=== PATIENT | male | born 1965 | race Caucasian/White ===

== ENCOUNTER 2020-07-08 23:14 | Inpatient (IN) | payer OTHER ==
[~2020-07-08] VITALS: Ht 182.9 cm; Wt 79.5 kg
[~2020-07-08 23:14] MED LIST: AMBIEN10 MG PO; IBUPROFEN200 MG PO; OXYCODONE HCL5 MG PO; XANAX1 MG PO; ZANTAC150 MG PO
[2020-07-08] MEDS ORDERED: LOPRESSOR25 MG PO (23:20)
[2020-07-08] MEDS ORDERED: VALIUM10 MG PO (23:21)
--- NOTE | 2020-07-08 23:22 | NUR ---
TRAUMA BAND [id number]
[2020-07-09 00:04] LABS: ANION GAP 13.7 mmol/L (8-16); CALCIUM 8.5 mg/dL (8.5-10.1); CARBON DIOXIDE 25.4 mmol/L (21.0-32.0); CREATININE - SERUM 1.2 mg/dL (0.6-1.3); POTASSIUM - SERUM 4.1 mmol/L (3.5-5.1)
[2020-07-09 00:06] LABS: HEMATOCRIT 46.5 % (42.0-54.0); HEMOGLOBIN 16.1 g/dL (13.5-17.5); LYMPHOCYTES 14.1 % (15-50); MCHC 34.6 g/dL (31.0-37.0); MCV 89.4 fL (80.0-100.0); MEAN PLATELET VOLUME 9.3 fL (7.4-10.4); NEUTROPHILS 79.3 % (40-80); PLATELET COUNT 172 10x3/uL (130-400); RDW 12.6 % (11.5-14.5); WBC 9.6 10x3/uL (4.8-10.8)
[2020-07-09 00:09] LABS: ALBUMIN 3.8 g/dL (3.4-5.0); BILIRUBIN - TOTAL 0.54 mg/dL (0.2-1.3); PROTEIN - SERUM 7.5 g/dL (6.4-8.2)
--- NOTE | 2020-07-09 00:10 | NUR ---
PT TO CT AT THIS TIME.
[2020-07-09 02:38] LABS: APTT 26.3 SECONDS (22.8-39.4); INR 1.25 (0.85-1.17); PROTIME 14.6 SECONDS (11.6-15.0)
[2020-07-09 02:52] LABS: AMYLASE - SERUM 86 U/L (25-115); CKMB 37.8 U/L (0.0-3.6); CREATINE KINASE 744 UL (21-232); LIPASE 625 U/L (73-393)
[2020-07-09 02:54] LABS: TROPONIN-I < 0.017 ng/mL (0.000-0.060)
--- NOTE | 2020-07-09 03:30 | NUR ---
RECEIVED PT FROM ER VIA BED. PT A&O X4. PIV TO LEFT FOREARM, PATENT AND INFUSING, NO REDNESS OR SWELLING. FX TO GABE, SIMBA WRAP IN PLACE. TELE IN PLACE, 96 SR. BRUISES TO BACK. PT BEDFAST AND TOTAL CARE. EDUCATED ON CL AND NEEDS, VERBALIZED UNDERSTANDING. BED LOW, CL IN REACH.
[2020-07-09 04:00] VITALS: BP 139/73
[2020-07-09 05:16] VITALS: BP 139/73; BMI 23.8
--- NOTE | 2020-07-09 05:58 | NUR ---
PERFORMED HIPPA CLEANSE, PT TOLERATED WELL. BED LOW, CL IN REACH.
[2020-07-09 08:48] VITALS: BP 115/76
[2020-07-09 10:01] LABS: BASOPHILS 0.2 % (0-2); EOSINOPHILS 1.4 % (0-7); HEMATOCRIT 43.8 % (42.0-54.0); HEMOGLOBIN 15.3 g/dL (13.5-17.5); IMMATURE GRANULOCYTES 0.3 % (0-5); LYMPHOCYTES 17.4 % (15-50); MCH 31.5 pg (26.0-34.0); MCHC 34.9 g/dL (31.0-37.0); MCV 90.3 fL (80.0-100.0); MEAN PLATELET VOLUME 9.3 fL (7.4-10.4); MONOCYTES 6.7 % (2-11); NEUTROPHIL ABS# 6.81 10x3/uL (1.78-5.38); PLATELET COUNT 169 10x3/uL (130-400); RBC 4.85 10x6/uL (4.20-6.10); RDW 12.9 % (11.5-14.5); WBC 9.2 10x3/uL (4.8-10.8)
[2020-07-09 12:46] VITALS: BP 115/81
[2020-07-09 13:06] VITALS: Ht 182.9 cm; Wt 79.5 kg
[2020-07-09 17:11] VITALS: BP 116/82
[2020-07-09 20:23] VITALS: BP 111/63
[2020-07-10] VITALS (7 sets, daily range): BP systolic 103–138; BP diastolic 70–90
[2020-07-10 03:16] LABS: UDS - AMPHET POSITIVE QUAL (NEGATIVE); UDS - BARB NEGATIVE QUAL (NEGATIVE); UDS - BENZO POSITIVE QUAL (NEGATIVE); UDS - COCAINE NEGATIVE QUAL (NEGATIVE); UDS - OPIATE POSITIVE QUAL (NEGATIVE); UDS - PCP NEGATIVE QUAL (NEGATIVE); UDS - THC NEGATIVE QUAL (NEGATIVE)
[2020-07-10 03:50] LABS: BILIRUBIN NEGATIVE (NEGATIVE); KETONE NEGATIVE (NEGATIVE); NITRITE NEGATIVE (NEGATIVE); UROBILINOGEN NORMAL mg/dL (< 2)
[2020-07-10 03:52] LABS: BACTERIA NONE SEEN HPF (NONE SEEN); SQUAMOUS EPITHELIAL 0-5 HPF (0-4); WHITE CELLS - URINE 0-5 HPF (0-1)
--- NOTE | 2020-07-10 05:13 | NUR ---
I have reviewed this patient and I concur with the Shift Assessment completed by the Licensed Practical Nurse today this shift.
[2020-07-10 05:44] LABS: BASOPHILS 0.2 % (0-2); EOSINOPHILS 2.8 % (0-7); HEMATOCRIT 44.9 % (42.0-54.0); HEMOGLOBIN 15.3 g/dL (13.5-17.5); IMMATURE GRANULOCYTES 0.4 % (0-5); LYMPHOCYTE ABS# 1.62 10x3/uL (1.32-3.57); LYMPHOCYTES 19.1 % (15-50); MCH 30.9 pg (26.0-34.0); MCHC 34.1 g/dL (31.0-37.0); MCV 90.7 fL (80.0-100.0); MEAN PLATELET VOLUME 10.1 fL (7.4-10.4); MONOCYTES 7.8 % (2-11); NEUTROPHILS 69.7 % (40-80); PLATELET COUNT 157 10x3/uL (130-400); RBC 4.95 10x6/uL (4.20-6.10); RDW 13.1 % (11.5-14.5); WBC 8.5 10x3/uL (4.8-10.8)
[2020-07-10 05:56] LABS: ALKALINE PHOSPHATASE 66 U/L (30-120); ALT (SGPT) 26 U/L (10-68); BILIRUBIN - TOTAL 0.54 mg/dL (0.2-1.3); CALC OSMOLALITY 273 mosm/kg (275-300); CARBON DIOXIDE 26.9 mmol/L (21.0-32.0); CHLORIDE - SERUM 104 mmol/L (98-107); GLUCOSE 108 mg/dL (74-106); MAGNESIUM - SERUM 2.3 mg/dL (1.8-2.4); POTASSIUM - SERUM 3.6 mmol/L (3.5-5.1); PROTEIN - SERUM 6.4 g/dL (6.4-8.2); SODIUM 137 mmol/L (136-145); eGFR NON AFRICAN AMERICAN 83 mL/min (90-120)
[2020-07-10 06:02] LABS: UREA NITROGEN 10 mg/dL (7-18)
--- NOTE | 2020-07-10 11:17 | NUR ---
PATIENT PREMEDICATED AND PATIENT STABLE PRIOR TO LEAVING FOR PROCEDURE. RIGHT ARM ELEVATED WITH ICE PACK APPLIED. PAIN 3/10 POST MORPHINE GIVEN IVP.
--- NOTE | 2020-07-11 00:14 | NUR ---
I have reviewed this patient and I concur with the Shift Assessment completed by the Licensed Practical Nurse today this shift.
[2020-07-11 01:19] VITALS: BP 112/74
[2020-07-11 04:00] VITALS: BP 114/75
[2020-07-11 06:39] LABS: BASOPHILS 0.1 % (0-2); EOSINOPHILS 0.6 % (0-7); HEMATOCRIT 43.1 % (42.0-54.0); HEMOGLOBIN 14.9 g/dL (13.5-17.5); IMMATURE GRANULOCYTES 0.2 % (0-5); LYMPHOCYTE ABS# 1.33 10x3/uL (1.32-3.57); LYMPHOCYTES 12.5 % (15-50); MCH 30.9 pg (26.0-34.0); MCHC 34.6 g/dL (31.0-37.0); MCV 89.4 fL (80.0-100.0); MEAN PLATELET VOLUME 10.1 fL (7.4-10.4); MONOCYTES 8.2 % (2-11); NEUTROPHIL ABS# 8.32 10x3/uL (1.78-5.38); NEUTROPHILS 78.4 % (40-80); PLATELET COUNT 158 10x3/uL (130-400); RBC 4.82 10x6/uL (4.20-6.10); RDW 12.7 % (11.5-14.5); WBC 10.6 10x3/uL (4.8-10.8)
[2020-07-11 07:11] LABS: ALBUMIN 2.8 g/dL (3.4-5.0); ALKALINE PHOSPHATASE 72 U/L (30-120); BILIRUBIN - TOTAL 0.34 mg/dL (0.2-1.3); CALC OSMOLALITY 276 mosm/kg (275-300); CALCIUM 8.1 mg/dL (8.5-10.1); CARBON DIOXIDE 24.8 mmol/L (21.0-32.0); CHLORIDE - SERUM 104 mmol/L (98-107); CREATININE - SERUM 0.9 mg/dL (0.6-1.3); GLUCOSE 144 mg/dL (74-106); MAGNESIUM - SERUM 2.3 mg/dL (1.8-2.4); POTASSIUM - SERUM 3.8 mmol/L (3.5-5.1); PROTEIN - SERUM 6.6 g/dL (6.4-8.2); SODIUM 138 mmol/L (136-145); UREA NITROGEN 8 mg/dL (7-18); eGFR NON AFRICAN AMERICAN > 90 mL/min (90-120)
[2020-07-11 07:22] LABS: ALT (SGPT) 38 U/L (10-68)
[2020-07-11 08:16] VITALS: BP 118/74
[2020-07-11] MEDS ORDERED: PERCOCET 5-3251 TAB PO (09:06)
[2020-07-11] MEDS ORDERED: VISTARIL50 MG PO (09:06)
[2020-07-11 12:01] VITALS: BP 120/82
[2020-07-11 16:33] VITALS: BP 91/44
--- NOTE | 2020-07-11 20:13 | OP ---
PATIENT NAME: REID CASTANO MEDICAL RECORD: [id number] :69 LOCATION:[id number] ADMISSION DATE:07/09/20 SURGEON: TALAT LYNN DO DATE OF OPERATION: 07/10/2020 PROCEDURE PERFORMED: Right distal radius open reduction internal fixation and DRUJ stabilization pinning. PREOPERATIVE DIAGNOSES: Right intra-articular distal radius fracture and DRUJ disruption. POSTOPERATIVE DIAGNOSES: Right intra-articular distal radius fracture and DRUJ disruption. INDICATIONS: Mr. Castano is a 54-year-old male who fell off a roof and sustained a right distal radius fracture. We were not aware of the DRUJ until he got to the OR. I informed him of the risks and benefits of this procedure including infection, bleeding, damage to nerves or vessels, need for further surgery, continued pain, loss of motion of the wrist, need for removal of hardware, failure of implants, failure of hardware, malunion, nonunion, blood clots and even and he signed a consent. SURGEON: Talat Lynn DO DESCRIPTION OF PROCEDURE: The patient was taken to the operative suite, laid in supine position, given general anesthetic. After given a block by anesthesia in the preoperative area, he was given 2 grams of Ancef and LMA was placed. The right upper extremity was then prepped and draped in sterile fashion. A timeout was performed. Everyone was in agreeance with the correct site, side, patient and procedure. I then exsanguinated the right upper extremity with an Esmarch, tourniquet was inflated to 250 mmHg, it was up for 28 minutes. I then made careful dissection down through the flexor carpi radialis interval and made careful dissection down to the pronator quadratus tendon, peeled it off radially, got a reduction of the distal radius intra-articular fracture and put a K-wire through the distal radial styloid. I then placed an Acumed plate on the distal radius. Once this was in adequate position, I placed a screw in the oblong hole in the shaft and then placed four screws distally, one in the radial styloid and then 2 more locking screws in the shaft through the plate. At that point, I noted that the ulna was a very wide. The DRUJ was severely widened. I then reduced it manually and put 0.062 K-wire across from the ulna to the radius holding it into place, bent and cut the pin. The tourniquet was then let down. Any bleeding was coagulated with a pickup and a Bovie and bipolar. It was then irrigated and Ilia Herrera, certified surgical hair assistant closed the site with 3-0 Vicryl in inverted interrupted fashion and placed a Prineo glue on the site. He was then dressed with Adaptic, 4 x 4s, cast padding, and a volar splint and secured with an Cesario wrap. He was awakened and taken to recovery in stable condition. BLOOD LOSS: Minimal. COMPLICATIONS: None. TRANSINT:[id number] Voice Confirmation ID: [id number] DOCUMENT ID: [id number] OPERATIVE REPORT [id number] REID CASTANO,TALAT Harley DO at 2013 CC: [id number] DICTATION DATE: 07/10/20 1443 BSS SOLUTION ARCHITECT: 07/10/[address] [facility] [address] [place] [address]
[2020-07-11 20:21] VITALS: BP 133/96
--- NOTE | 2020-07-11 22:00 | NUR ---
IV TO LEFT AC INFILTRATED. DCd, CATH INTACT. 20G IV RESITE TO LEFT FOREARM, 1ST ATTMPT. PATENT. SWAB CAPS IN USE. PT REQUESTS BED ALARM AND ADELA BE TURNED OFF. INFORMED PT OF FALL RISKS, PT SIGNED WAIVER AND REPORTS HE WILL USE CALL BUTTON BEFORE ATTEMPTING TO AMBULATE. CPOC
--- NOTE | 2020-07-11 23:00 | NUR ---
EKG PERFORMED, ABNORMAL RESULTS. PT REPORTING CHEST PAINRADIATING UP TO LEFT SIDE OF JAW. ANNUAL GIVING DIRECTOR IN ROOM, FEROZ GO APN NOTIFIED. PER REGINALDO, CARDIOLOGY CONSULT CALLED TO DR. SMITH. DR WILL ADDRESS IN THE MORNING, NO NEW ORDERS GIVEN. CONTINUE TO MONITOR CLOSELY. PT REPORTS RELIEF AFTER PRN MORPHINE. CPOC.
--- NOTE | 2020-07-12 03:26 | NUR ---
I have reviewed this patient and I concur with the Shift Assessment completed by the Licensed Practical Nurse today this shift.
--- NOTE | 2020-07-12 03:40 | NUR ---
GAVE PERCOCET 10 PO FOR REPORTED PAIN AT LEVEL 8/10. WILL MONITOR FOR EFFECTIVENESS.
[2020-07-12 04:30] VITALS: BP 137/96
[2020-07-12 05:58] LABS: BASOPHILS 0.4 % (0-2); EOSINOPHILS 5.3 % (0-7); HEMATOCRIT 41.5 % (42.0-54.0); HEMOGLOBIN 14.3 g/dL (13.5-17.5); IMMATURE GRANULOCYTES 0.6 % (0-5); LYMPHOCYTE ABS# 1.99 10x3/uL (1.32-3.57); MCH 31.2 pg (26.0-34.0); MCHC 34.5 g/dL (31.0-37.0); MCV 90.6 fL (80.0-100.0); MONOCYTES 8.6 % (2-11); NEUTROPHIL ABS# 5.06 10x3/uL (1.78-5.38); NEUTROPHILS 61.1 % (40-80); PLATELET COUNT 153 10x3/uL (130-400); RBC 4.58 10x6/uL (4.20-6.10); RDW 12.8 % (11.5-14.5); WBC 8.3 10x3/uL (4.8-10.8)
[2020-07-12 06:03] LABS: ALBUMIN 2.7 g/dL (3.4-5.0); ALKALINE PHOSPHATASE 73 U/L (30-120); BILIRUBIN - TOTAL 0.46 mg/dL (0.2-1.3); CALCIUM 7.9 mg/dL (8.5-10.1); CARBON DIOXIDE 26.6 mmol/L (21.0-32.0); CHLORIDE - SERUM 104 mmol/L (98-107); CREATININE - SERUM 0.8 mg/dL (0.6-1.3); GLUCOSE 112 mg/dL (74-106); MAGNESIUM - SERUM 2.2 mg/dL (1.8-2.4); POTASSIUM - SERUM 3.6 mmol/L (3.5-5.1); PROTEIN - SERUM 6.3 g/dL (6.4-8.2); SODIUM 138 mmol/L (136-145); eGFR NON AFRICAN AMERICAN > 90 mL/min (90-120)
[2020-07-12 06:13] LABS: ALT (SGPT) 70 U/L (10-68); CALC OSMOLALITY 275 mosm/kg (275-300); UREA NITROGEN 11 mg/dL (7-18)
[2020-07-12 09:34] VITALS: BP 128/88
[2020-07-12 13:37] VITALS: BP 134/93
[2020-07-12 17:41] VITALS: BP 140/93
--- NOTE | 2020-07-12 19:00 | NUR ---
BEDSIDE REPORT RECEIVED AND CARE OF PT ASSUMED. PT LYING IN LOW RAND'S POSITION WITH EYES CLOSED AND EASY RESPIRATIONS. FAMILY MEMBERS ARE AT BEDSIDE. IV TO LEFT AC SALINE LOCKED.
[2020-07-12 20:00] VITALS: BP 128/92
--- NOTE | 2020-07-12 20:50 | NUR ---
HS MEDICATIONS GIVEN TO INCLUDE PERCOCET AND VISTARIL PER REQUEST FOR PAIN. PT REFUSED THE LOPRESSOR....RETURNED TO [facility].
[2020-07-13] VITALS: BP 108/81
[2020-07-13 04:00] VITALS: BP 135/87
[2020-07-13 05:53] LABS: BASOPHILS 0.5 % (0-2); EOSINOPHILS 6.8 % (0-7); HEMATOCRIT 45.6 % (42.0-54.0); HEMOGLOBIN 15.6 g/dL (13.5-17.5); IMMATURE GRANULOCYTES 0.8 % (0-5); LYMPHOCYTE ABS# 1.77 10x3/uL (1.32-3.57); LYMPHOCYTES 21.2 % (15-50); MCH 30.8 pg (26.0-34.0); MCHC 34.2 g/dL (31.0-37.0); MCV 89.9 fL (80.0-100.0); MEAN PLATELET VOLUME 9.7 fL (7.4-10.4); MONOCYTES 10.2 % (2-11); NEUTROPHIL ABS# 5.06 10x3/uL (1.78-5.38); NEUTROPHILS 60.5 % (40-80); PLATELET COUNT 168 10x3/uL (130-400); RBC 5.07 10x6/uL (4.20-6.10); RDW 12.9 % (11.5-14.5); WBC 8.4 10x3/uL (4.8-10.8)
[2020-07-13 06:31] LABS: ALBUMIN 2.7 g/dL (3.4-5.0); ALKALINE PHOSPHATASE 94 U/L (30-120); BILIRUBIN - TOTAL 0.43 mg/dL (0.2-1.3); CALCIUM 8.3 mg/dL (8.5-10.1); CARBON DIOXIDE 26.1 mmol/L (21.0-32.0); CHLORIDE - SERUM 103 mmol/L (98-107); CREATININE - SERUM 0.8 mg/dL (0.6-1.3); GLUCOSE 139 mg/dL (74-106); MAGNESIUM - SERUM 2.2 mg/dL (1.8-2.4); POTASSIUM - SERUM 3.5 mmol/L (3.5-5.1); PROTEIN - SERUM 6.6 g/dL (6.4-8.2); SODIUM 138 mmol/L (136-145); eGFR NON AFRICAN AMERICAN > 90 mL/min (90-120)
[2020-07-13 06:33] LABS: ALT (SGPT) 99 U/L (10-68); CALC OSMOLALITY 275 mosm/kg (275-300); UREA NITROGEN 7 mg/dL (7-18)
[2020-07-13 08:20] VITALS: BP 140/82
[2020-07-13] MEDS ORDERED: TESSALON PERLE100 MG PO (12:35)
[2020-07-13] MEDS ORDERED: MUCINEX600 MG PO (12:35)
[2020-07-13] MEDS ORDERED: COLACE100 MG PO (12:35)
--- NOTE | 2020-07-13 13:15 | NUR ---
IV DISCONTINUED AND VERBALIZED UNDERSTANDING OF DISCHARGE INSTRUCTIONS WITH PERCRIPTIONS FOR VISTARIL AND PERCOCET. STABLE AT TIME OF DISCHARGE.
[2020-07-13 13:21] VITALS: BP 151/85
== END 2020-07-13 13:15 | disposition home or self-care (01) | DRG 511 ==
LOC: D.ER 23:14 → D.MS 07-09 02:43 → OBSVTIME 07-09 02:43 → D.MS 07-09 15:03
PROVIDERS: Family Medicine; Orthopaedic Surgery; ADMIT Family Medicine; ATTEND Family Medicine
PROC: 0PSH04Z Reposition Right Radius with Internal Fixation Device, Open Approach (ICD-10-PCS; principal; 2020-07-10 11:30)
DX: S52.571A Other intraarticular fracture of lower end of right radius, initial encounter for closed fracture (principal); S32.029A Unspecified fracture of second lumbar vertebra, initial encounter for closed fracture; M48.54XA Collapsed vertebra, not elsewhere classified, thoracic region, initial encounter for fracture; D68.59 Other primary thrombophilia; W13.2XXA Fall from, out of or through roof, initial encounter; S20.219A Contusion of unspecified front wall of thorax, initial encounter; F15.90 Other stimulant use, unspecified, uncomplicated; I10 Essential (primary) hypertension; F41.8 Other specified anxiety disorders; G47.00 Insomnia, unspecified; Z72.89 Other problems related to lifestyle